=== PATIENT | female | born 1960 | race Caucasian/White ===

== ENCOUNTER 2021-09-04 04:55 | Emergency (ER) | payer OTHER, SELFPAY ==
[2021-09-04 05:09] VITALS: BP 124/74; PULSE 66; RESP 14; TEMP 36.6; O2SAT 99; BMI 25.0
--- NOTE | 2021-09-04 05:15 | ED_ITS ---
HPI - Eye Problem General Chief complaint: Eye Problems Stated complaint: burning sensation in eyes Time Seen by Provider: 09/04/21 05:08 Source: patient Mode of arrival: ambulatory Limitations: no limitations History of Present Illness HPI Narrative: Patient comes to emergency room complaining of bilateral eye burning. Patient states she woke up approximately 2 hours ago, had a sensation that her eyes are burning, feels like little grains of sand in her eyes, bilateral eye tearing, no discharge. No headache. Patient states that the only thing that she can think of that may have caused this is that yesterday she was raking [place]. Patient states that she is not known to have any allergies including environmental. Related Data Previous Rx's Medication Instructions Recorded cetirizine 0.24 % eye drops in a 1 drp OPHTHALMIC (EYE) BID PRN #30 09/04/21 dropperette (Zerviate) ea cetirizine 10 mg tablet (All Day 10 mg PO DAILY PRN #7 tab 09/04/21 Allergy (cetirizine)) ketorolac 0.4 % eye drops 1 drp OPHTHALMIC (EYE) QID PRN #5 09/04/21 ml Allergies Allergy/AdvReac Type Severity Reaction Status Date / Time No Known Allergies Allergy Verified 09/04/21 05:13 Review of Systems Review of Systems: Constitutional : No Weight loss, No Fever, No Chills, No Night Sweats, No Fatigue, No Malaise ENT/Mouth : No Hearing loss, No Ear Pain, No Nasal Congestion, No Sinus Pain, No Hoarseness, No sore throat, No Rhinorrhea, No Swallowing Difficulty Eyes: Complaining of bilateral eye discomfort, grainy sensation bilaterally, burning sensation, no visual acuity changes Cardiovascular : No Chest Pain, No SOB, No Dyspnea on Exertion, No Orthopnea, No Edema, No Palpitations Respiratory : No Cough, No Sputum, No Wheezing, No Smoke Exposure, No Dyspnea Gastrointestinal : No Nausea, No Vomiting, No Diarrhea, No Constipation, No abdominal Pain, No Hematochezia, No Melena Genitourinary : no irregular bleeding, No Dysuria, No Urinary Frequency, No Hematuria, No Urinary Incontinence, No Urgency, No Flank Pain, No Urinary Flow Changes, No Hesitancy Musculoskeletal : No joint pain, No Myalgias, No Joint Swelling Skin : No Skin Lesions, No rash Neuro : No Weakness, No Numbness, No Paresthesias, No Loss of Consciousness, No Dizziness, No Headache Psych : No Anxiety/Panic, No Depression, No SI/HI/AH/VH, No Social Issues, Heme/Lymph: No Bruising, No Bleeding,No Lymphadenopathy Endocrine : No Polyuria, No Polydipsia, No Temperature Intolerance Physical Exam Vital Signs: Vital Signs: Last Vital Signs Temp 97.9 F 09/04/21 05:09 Pulse 66 09/04/21 05:09 Resp 14 09/04/21 05:09 BP 124/74 09/04/21 05:09 Pulse Ox 99 09/04/21 05:09 Body Mass Index 25.0 Const: Other: Appearance: Alert. Oriented X3. No acute distress. Eyes: Pupils equal, round and reactive to light. Fluorescein stain test negative bilaterally, no corneal scratches, no foreign bodies ENT: Pharynx normal. Neck: Normal inspection. Neck supple. No lymph nodes noted. No crepitus CVS: Normal heart rate and rhythm. Pulses normal. Normal S1 and S2 Respiratory: No respiratory distress. Breath sounds normal. No Wheezing. No rales Abdomen: Soft and nontender. No rigidity. No distention. Skin: Skin warm and dry. Normal skin color. Normal skin turgor. Extremities: No lower extremity edema. No lower extremity edema. No Lacerations. No Rash Neuro: Oriented X 3. No motor deficit. No sensory deficit. Moving all extermities. No slurred speech. Course Course Course Narrative: I discussed with the patient the likely she has allergic conjunctivitis versus allergic rhinitis. 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 Discharge Plan Discharge Clinical Impression: Allergic rhinitis due to allergen Patient Disposition: Home, Self-Care Instructions: Allergic Rhinitis (ED) Additional Instructions: If your eye symptoms do not improve within 24 hours, please contact your seed mill superintendent/eye doctor. up with your primary care physician tomorrow. If you have any worsening or new symptoms, please return to the emergency room or call 911 Prescriptions: New Zerviate 0.24 % dropperette 1 drp ophthalmic (eye) BID PRN (Reason: itching) Qty: 30 RF: 0 ketorolac 0.4 % drops 1 drp ophthalmic (eye) QID PRN (Reason: pain) Qty: 5 RF: 0 cetirizine [All Day Allergy (cetirizine)] 10 mg tablet 10 mg PO DAILY PRN (Reason: allergy symptoms) Qty: 7 RF: 0 Stand Alone Forms: Work/School Release
[2021-09-04] MEDS: Tetracaine HCl/PF 0.5% Oph Sol 4 ML DROPS 1 DROP EYE-BOTH (05:45)
[2021-09-04] MEDS: Fluorescein Sodium STRIP 1 STRIP EYE-BOTH (05:45)
== END 2021-09-04 05:51 | disposition home or self-care (01) ==
LOC: HO.ED 05:44
PROVIDERS: Emergency Provider Emergency Medicine
DX: J30.9 Allergic rhinitis, unspecified (principal); H57.13 Ocular pain, bilateral
CPT/HCPCS: 99283; 99284